=== PATIENT | female | born 1965 | race Caucasian/White ===

== ENCOUNTER 2017-07-09 14:49 | Outpatient (CLI) | payer BC, SELFPAY ==
[2017-07-09 15:01] VITALS: BMI 37.7
[2017-07-09 15:05] VITALS: BP 126/75; PULSE 88; RESP 20; TEMP 36.7; O2SAT 98
[2017-07-09 15:30] VITALS: BP 118/70; PULSE 89; RESP 20; TEMP 36.9; O2SAT 98
[2017-07-09 15:34] LABS: Anion Gap 13.1 mEq/L (5-15); Blood Urea Nitrogen 20 mg/dL (7-18); Carbon Dioxide 28 mmol/L (21.0-32.0); Chloride 99 mmol/L (98-107); Creatinine Clearance Estimated 127 mL/min (0-300); Creatinine,Serum 0.79 mg/dL (0.55-1.02); Estimated Glomerular Filt Rate 76 ml/min (>60); GFR (African American) 92 ML/MIN (>60); Glucose 257 mg/dL (74-106); Potassium 4.1 mmoL/L (3.5-5.1); Sodium 136 mmol/L (136-145)
[2017-07-09 15:50] LABS: Acetone, Serum (Rapid) None Detected (None Detect)
[2017-07-09 16:25] VITALS: BP 118/70; PULSE 68; RESP 20; TEMP 36.9; O2SAT 96
[2017-07-09 16:30] LABS: POC Glucose,Bedside 177 mg/dL (70-110)
== END 2017-07-09 16:30 | disposition hospice, home (50) ==
LOC: INF 14:52
PROVIDERS: PCP Family Medicine; Visit Provider Family Medicine
DX: E86.0 Dehydration (principal); E11.9 Type 2 diabetes mellitus without complications; R73.9 Hyperglycemia, unspecified
CPT/HCPCS: 80048; 82009; 82962; 96365; 96375